=== PATIENT | male | born 1970 | race Caucasian/White ===

== ENCOUNTER 2020-11-19 01:04 | Emergency (ER) | payer MEDICAID ==
[2020-11-19 01:26] VITALS: BP 144/88; PULSE 115
[2020-11-19] MEDS ORDERED: Ondansetron 4 MG Tab.DIS PO ONE (01:42)
--- NOTE | 2020-11-19 01:48 | EDM.PDOC ---
ED HPI GENERAL MEDICAL PROBLEM - General Chief Complaint: Gastrointestinal Problem Stated Complaint: PUKING Time Seen by Provider: 11/19/20 01:25 Source of Information: Reports: Patient History Limitations: Reports: No Limitations - History of Present Illness INITIAL COMMENTS - FREE TEXT/NARRATIVE: 50-year-old male who after supper tonight started feeling nauseous and then deve loped diarrhea. No blood in the stool. He tried to lay down to go to sleep early but became nauseated and has had emesis at least 5 times since 8 PM. It is now 1:30 in the morning. The diarrhea has slowed down, but he is developed some abdominal cramping and just does not feel well, wants to get some sleep. No chest pain, he also feels short of breath and "wants some oxygen". Onset: Sudden (Symptoms started fairly suddenly about 5 hours ago) Duration: Hour(s): Location: Reports: Abdomen (5 hours) Improves with: Reports: None Worsens with: Reports: None Associated Symptoms: Reports: Diaphoresis, Fever/Chills, Malaise, Nausea/Vomiting, Shortness of Breath. Denies: Confusion, Chest Pain, Cough, Headaches denies pain Pain Score (Numeric/FACES): 0 - Related Data Allergies Allergy/AdvReac Type Severity Reaction Status Date / Time Penicillins Allergy Hives Verified 11/19/20 01:21 Home Meds: Home Meds Simvastatin [Zocor] 40 mg PO BEDTIME 04/03/16 [History] Citalopram [Celexa] 20 mg PO DAILY 08/16/16 [History] traZODone 50 mg PO BEDTIME 11/19/20 [History] Past Medical History HEENT History: Reports: Impaired Vision, Other (See Below) Other HEENT History: glasses Cardiovascular History: Reports: High Cholesterol Neurological History: Reports: Concussion Psychiatric History: Reports: Depression - Past Surgical History HEENT Surgical History: Reports: Oral Surgery, Other (See Below) Other HEENT Surgeries/Procedures: bone spur roof of mouth GI Surgical History: Reports: Appendectomy, Cholecystectomy Social & Family History - Tobacco Use Tobacco Use Status *Q: Never Tobacco User - Caffeine Use Caffeine Use: Reports: Coffee, Soda - Recreational Drug Use Recreational Drug Use: No ED ROS GENERAL - Review of Systems Review Of Systems: See Below Constitutional: Reports: Chills, Malaise, Diaphoresis HEENT: Reports: No Symptoms Respiratory: Reports: Shortness of Breath. Denies: Cough Cardiovascular: Denies: Chest Pain, Palpitations Endocrine: Reports: Fatigue GI/Abdominal: Reports: Abdominal Pain, Diarrhea, Nausea, Vomiting Skin: Reports: No Symptoms Neurological: Denies: Dizziness, Headache Psychiatric: Reports: Anxiety ED EXAM, GI/ABD - Physical Exam Exam: See Below Exam Limited By: No Limitations General Appearance: Alert, No Apparent Distress, Anxious Eyes: Bilateral: Normal Appearance (No jaundice) Head: Atraumatic Respiratory/Chest: No Respiratory Distress, Lungs Clear Cardiovascular: Regular Rate, Rhythm, Tachycardia (Mild tachycardia) GI/Abdominal Exam: Normal Bowel Sounds, Soft, Tender (Reacts with some mild tenderness diffusely to the abdomen, no focal tenderness or rebound) Extremities: Normal Inspection. No: Pedal Edema Neurological: Alert, Oriented Psychiatric: Anxious Skin Exam: Warm, Dry Course - Vital Signs Last Recorded V/S: Last Vital Signs Temp 97.4 F 11/19/20 01:22 Pulse 115 H 11/19/20 01:22 Resp 20 11/19/20 01:22 BP 144/88 H 11/19/20 01:22 Pulse Ox 95 11/19/20 01:22 - Orders/Labs/Meds Meds: Medications Discontinued Medications Generic Name Dose Route Start Last Admin Trade Name Katherine PRN Reason Stop Dose Admin Ondansetron HCl 4 mg 11/19/20 01:42 11/19/20 01:48 Ondansetron 4 Mg Tab.Dis PO 11/19/20 01:43 4 mg ONETIME ONE Administration - Re-Assessments/Exams Free Text/Narrative Re-Assessment/Exam: 11/19/20 01:46 Explained to the patient that this is likely a viral gastroenteritis or an intolerance to something he ate. This is not a condition that can be treated with antibiotics or any kind of antidote. He was given 4 mg of sublingual Zofran, and will be discharged with 5 more doses and encouraged to take small frequent sips of water to stay hydrated. He can recheck tomorrow if not improving. Otherwise increase his diet as tolerated. Departure - Departure Time of Disposition: 01:48 Disposition: Home, Self-Care 01 Clinical Impression: Gastroenteritis - Discharge Information Instructions: Viral Gastroenteritis, Adult, [id number] Referrals: PCP,None [Primary Care Provider] - Forms: ED Department Discharge Care Plan Goals: Take frequent sips of water to stay hydrated tonight, use Zofran every 4 hours to help with nausea and vomiting. Consider rechecking if not improved by tomorrow afternoon. Advance diet as tolerated. Sepsis Event Note (ED) - Evaluation Sepsis Screening Result: No Definite Risk - Focused Exam Vital Signs: Vital Signs Temp Pulse Resp BP Pulse Ox 11/19/20 01:22 97.4 F 115 H 20 144/88 H 95 11/19/20 01:20 97.4 F 115 H 20 144/88 H 95
== END 2020-11-19 02:01 | disposition home or self-care (01) ==
LOC: JP.ED 01:04
DX: K52.9 Noninfective gastroenteritis and colitis, unspecified (principal); E78.00 Pure hypercholesterolemia, unspecified; R00.0 Tachycardia, unspecified; Z88.0 Allergy status to penicillin; Z79.899 Other long term (current) drug therapy
CPT/HCPCS: 99283; A9270

== ENCOUNTER 2021-04-22 12:24 | Emergency (ER) | payer MEDICAID ==
[2021-04-22] MEDS ORDERED: LORazepam 0.5 MG Tab PO ONE (15:16)
[2021-04-22] MEDS ORDERED: Sodium Chloride 0.9% 1,000 ML IV SCH (15:30)
--- NOTE | 2021-04-22 15:40 | EDM.PDOC ---
ED HPI GENERAL MEDICAL PROBLEM - General Chief Complaint: General Stated Complaint: HEAD PAIN, SHAKY Time Seen by Provider: 04/22/21 14:11 Source of Information: Reports: Patient History Limitations: Reports: No Limitations - History of Present Illness INITIAL COMMENTS - FREE TEXT/NARRATIVE: 50 yo male presents to the ER with 5 days of "medina" headaches that are transient in nature. they occur randomly throughout the day. he has been sleeping poorly all week. decreased appetite. he does have a nodule on his thyroid that is going to be removed later this month. It has been biopsied and is benign in nature. denies nausea, vomiting, chest pain, SOB - Related Data Allergies Allergy/AdvReac Type Severity Reaction Status Date / Time Penicillins Allergy Hives Verified 04/22/21 14:59 Home Meds: Home Meds Simvastatin [Zocor] 40 mg PO BEDTIME 04/03/16 [History] Citalopram [Celexa] 20 mg PO DAILY 08/16/16 [History] traZODone 50 mg PO BEDTIME 11/19/20 [History] Albuterol Sulfate [Albuterol Sulfate Hfa] 2 puff INH ASDIRECTED PRN 04/22/21 [History] Past Medical History HEENT History: Reports: Impaired Vision, Other (See Below) Other HEENT History: glasses Cardiovascular History: Reports: High Cholesterol Neurological History: Reports: Concussion Psychiatric History: Reports: Depression - Past Surgical History HEENT Surgical History: Reports: Oral Surgery, Other (See Below) Other HEENT Surgeries/Procedures: bone spur roof of mouth GI Surgical History: Reports: Appendectomy, Cholecystectomy Social & Family History - Tobacco Use Tobacco Use Status *Q: Never Tobacco User - Caffeine Use Caffeine Use: Reports: None - Recreational Drug Use Recreational Drug Use: No ED ROS GENERAL - Review of Systems Review Of Systems: See Below Constitutional: Reports: Fatigue. Denies: Fever Respiratory: Denies: Shortness of Breath, Wheezing Cardiovascular: Denies: Chest Pain, Palpitations, Syncope Endocrine: Denies: Fatigue GI/Abdominal: Reports: Constipation. Denies: Abdominal Pain, Diarrhea, Nausea, Vomiting Neurological: Reports: Headache. Denies: Confusion, Dizziness ED EXAM, GENERAL - Physical Exam Exam: See Below Exam Limited By: No Limitations General Appearance: Alert, WD/WN, No Apparent Distress Head: Atraumatic, Normocephalic Neck: Normal Inspection, Supple, Non-Tender, Full Range of Motion. No: Lymphadenopathy (R), Lymphadenopathy (L) Respiratory/Chest: No Respiratory Distress, Lungs Clear, Normal Breath Sounds, No Accessory Muscle Use, Chest Non-Tender. No: Crackles, Rhonchi, Wheezing Cardiovascular: No Murmur, Tachycardia Neurological: Alert, Oriented, CN II-XII Intact, Normal Cognition, Normal Gait Psychiatric: Normal Affect, Normal Mood Skin Exam: Warm, Dry, Intact Course - Vital Signs Last Recorded V/S: Last Vital Signs Temp 37.0 C 04/22/21 14:54 Pulse 102 H 04/22/21 15:56 Resp 24 H 04/22/21 15:56 BP 137/65 04/22/21 15:56 Pulse Ox 88 L 04/22/21 14:54 - Orders/Labs/Meds Orders: Active Orders 24 hr Category Date Time Status Sodium Chloride 0.9% [Normal Saline] 1,000 ml Med 04/22/21 15:30 Active IV ASDIRECTED Medication Orders Sodium Chloride (Normal Saline) 1,000 mls @ 999 mls/hr IV ASDIRECTED SHAYY Last Admin: 04/22/21 15:51 Dose: 999 mls/hr Documented by: JULIO Labs: Laboratory Tests 04/22/21 04/22/21 04/22/21 Range/Units 15:28 15:28 15:53 WBC 12.7 H (4.5-11.0) K/uL RBC 4.84 (4.30-5.90) M/uL Hgb 13.9 (12.0-15.0) g/dL Hct 41.4 (40.0-54.0) % MCV 86 (80-98) fL MCH 29 (27-31) pg MCHC 34 (32-36) % Plt Count 139 L (150-400) K/uL Neut % (Auto) 81.7 H (36-66) % Lymph % (Auto) 7.4 L (24-44) % [place] % (Auto) 10.7 H (2-6) % Eos % (Auto) 0.0 L (2-4) % Baso % (Auto) 0.2 (0-1) % Sodium 134 L (140-148) mmol/L Potassium 3.7 (3.6-5.2) mmol/L Chloride 97 L (100-108) mmol/L Carbon Dioxide 27 (21-32) mmol/L Anion Gap 13.7 (5.0-14.0) mmol/L BUN 13 (7-18) mg/dL Creatinine 1.0 (0.8-1.3) mg/dL Est Cr Clr Drug Dosing 69.54 mL/min Estimated GFR (MDRD) > 60 (>60) Glucose 177 H (74-106) mg/dL Calcium 8.8 (8.5-10.1) mg/dL Urine Color Yellow (YELLOW) Urine Appearance Clear (CLEAR) Urine pH 6.0 (5.0-8.0) Ur Specific [place] >= 1.030 (1.008-1.030) Urine Protein 100 H (NEGATIVE) mg/dL Urine Glucose (UA) 500 H (NEGATIVE) mg/dL Urine Ketones Negative (NEGATIVE) mg/dL Urine Occult Blood Trace-intact H (NEGATIVE) Urine Nitrite Negative (NEGATIVE) Urine Bilirubin Negative (NEGATIVE) Urine Urobilinogen >=8.0 H (0.2-1.0) EU/dL Ur Leukocyte Esterase Negative (NEGATIVE) Urine RBC 0-5 (0-5) Urine WBC 0-5 (0-5) Ur Epithelial Cells Few Amorphous Sediment Few Urine Bacteria Few Urine Mucus Few Meds: Medications Generic Name Dose Route Start Last Admin Trade Name Freq PRN Reason Stop Dose Admin Sodium Chloride 1,000 mls @ 999 mls/hr 04/22/21 15:30 04/22/21 15:51 Normal Saline IV 999 mls/hr ASDIRECTED SHAYY Administration Discontinued Medications Generic Name Dose Route Start Last Admin Trade Name Freq PRN Reason Stop Dose Admin Lorazepam 0.5 mg 04/22/21 15:16 04/22/21 15:48 Lorazepam 0.5 Mg Tab PO 04/22/21 15:17 0.5 mg ONETIME ONE Administration - Re-Assessments/Exams Free Text/Narrative Re-Assessment/Exam: 04/22/21 16:55 feeling better with fluids, he did have a large amount of glucose in his urine. will instruct him to continue encouraging fluid intake along with tylenol use for the head aches. and follow-up with primary care for diabetic evaluation Departure - Departure Time of Disposition: 16:57 Disposition: Home, Self-Care 01 Condition: Good Clinical Impression: Glucose found in urine on examination, Dehydration Headache Qualifiers: Headache type: unspecified Headache chronicity pattern: acute headache Intractability: not intractable Qualified Code(s): R51.9 - Headache, unspecified - Discharge Information *PRESCRIPTION DRUG MONITORING PROGRAM REVIEWED*: Not Applicable *COPY OF PRESCRIPTION DRUG MONITORING REPORT IN PATIENT MIGUELANGEL: Not Applicable Instructions: Dehydration, Adult, [id number] Referrals: Roland Crabtree NP [Primary Care Provider] - Forms: ED Department Discharge Additional Instructions: you had a large amount of glucose in your urine. This usually means you are diabetic. This will need to be follow-up next week with your primary care provider. In the mean time limit/avoid added sugar such as in candy, sweets, pastries and bread. increase fluid intake to 100 ounces of fluid per day use tylenol 650 mg every 6 hours for your headache Sepsis Event Note (ED) - Evaluation Sepsis Screening Result: Possible Sepsis Risk - Focused Exam Vital Signs: Vital Signs Temp Pulse Resp BP Pulse Ox 04/22/21 15:56 102 H 24 H 137/65 04/22/21 14:54 37.0 C 101 H 23 H 133/65 88 L 04/22/21 14:35 101 H 23 H 133/65 04/22/21 14:03 37.0 C 109 H 18 145/71 H 88 L - My Orders Last 24 Hours: My Active Orders 04/22/21 15:30 Sodium Chloride 0.9% [Normal Saline] 1,000 ml IV ASDIRECTED - Assessment/Plan Last 24 Hours: My Active Orders 04/22/21 15:30 Sodium Chloride 0.9% [Normal Saline] 1,000 ml IV ASDIRECTED
[2021-04-22 17:07] VITALS: BP 119/72; PULSE 103
== END 2021-04-22 17:18 | disposition home or self-care (01) ==
LOC: JP.ED 12:24
DX: E86.0 Dehydration (principal); R51.9 Headache, unspecified; R81 Glycosuria; E78.00 Pure hypercholesterolemia, unspecified; Z88.0 Allergy status to penicillin; Z79.899 Other long term (current) drug therapy
CPT/HCPCS: 36415; 80048; 81001; 85025; 99284; A9270; J7030

== ENCOUNTER 2022-03-29 12:24 | Emergency (ER) | payer MEDICAID ==
[2022-03-29 12:48] VITALS: BP 128/68; PULSE 72
[2022-03-29] MEDS ORDERED: HYDROmorphone 1 MG/ML Syringe IM ONE (13:43)
== END 2022-03-29 15:52 | disposition home or self-care (01) ==
LOC: JP.ED 12:24
DX: S39.012A Strain of muscle, fascia and tendon of lower back, initial encounter (principal); M54.16 Radiculopathy, lumbar region; M62.830 Muscle spasm of back; E78.00 Pure hypercholesterolemia, unspecified; Z79.899 Other long term (current) drug therapy; Z88.0 Allergy status to penicillin; X50.1XXA Overexertion from prolonged static or awkward postures, initial encounter
CPT/HCPCS: 72110; 96372; 99283; J1170

== ENCOUNTER 2022-11-20 06:32 | Day surgery (SDC) | payer MEDICAID ==
[2022-11-20] MEDS ORDERED: Lidocaine 1% with EPINEPHrine 1:100,000 50 ML MDV ONE (06:38)
[2022-11-20] MEDS ORDERED: Bupivacaine 0.5% 50 ML MDV ONE (06:38)
[2022-11-20] MEDS ORDERED: Bacitracin Oint 1 GM U/D Packet ONE (06:38)
[2022-11-20] MEDS ORDERED: Propofol 200 MG/20 ML SDV ONE (07:16)
[2022-11-20] MEDS ORDERED: Midazolam 1 MG/ML 2 ML SDV ONE (07:16)
[2022-11-20] MEDS ORDERED: fentaNYL 100 MCG/2 ML SDV ONE (07:16)
[2022-11-20] MEDS ORDERED: Acetaminophen 500 MG Tab PO ONE (07:30)
[2022-11-20] MEDS ORDERED: Lactated Ringers 1,000 ML IV SCH (07:30)
[2022-11-20] MEDS ORDERED: Clindamycin Phosphate in D5W 900 MG in Premix Bag 1 BAG IV ONE ×2 (08:15)
[2022-11-20 09:42] VITALS: BP 108/52; PULSE 72
== END 2022-11-20 09:45 | disposition home or self-care (01) ==
LOC: JP.SDS 06:32
PROVIDERS: ATTEND Student in an Organized Health Care Education/Training Program
DX: L72.0 Epidermal cyst (principal); R61 Generalized hyperhidrosis; E11.9 Type 2 diabetes mellitus without complications; E78.5 Hyperlipidemia, unspecified; F33.41 Major depressive disorder, recurrent, in partial remission; J45.909 Unspecified asthma, uncomplicated; Z79.84 Long term (current) use of oral hypoglycemic drugs; Z79.82 Long term (current) use of aspirin; Z79.899 Other long term (current) drug therapy; Z88.0 Allergy status to penicillin; Z98.890 Other specified postprocedural states
CPT/HCPCS: 11401; 12032; A9270; J2250; J2704; J3010; J3490; J7120; 88304